=== PATIENT | female | born 1970 | race Caucasian/White ===

== ENCOUNTER 2022-03-08 08:00 | Outpatient (CLI) | payer BC ==
[2022-03-08 20:07] LABS: GLUCOSE, URINE (UA) NEGATIVE (NEGATIVE); KETONES,URINE (UA) NEGATIVE (NEGATIVE); LEUKOCYTE ESTERASE, URINE NEGATIVE (NEGATIVE); NITRITE,URINE NEGATIVE (NEGATIVE); OCCULT BLOOD,URINE NEGATIVE (NEGATIVE); PROTEIN,URINE NEGATIVE (NEGATIVE); UROBILINOGEN,URINE 0.2 (NORMAL) E.U./dL (NORMAL)
[2022-03-08 20:10] LABS: BILIRUBIN,URINE SMALL (NEGATIVE); CLARITY,URINE CLEAR (CLEAR); ICTOTEST,URINE POSITIVE
[2022-03-08 20:24] LABS: BACTERIA,URINE None Seen /HPF (None Seen); RBC,URINE 0-5 /HPF (0-5); SQUAMOUS EPITHELIAL CELL,UR RARE Squamous (<= Few); WBC,URINE 0-3 /HPF (0-5)
== END 2022-03-08 23:59 | disposition home or self-care (01) ==
LOC: LAB 08:00
PROVIDERS: ATTEND Emergency Medicine
DX: R17 Unspecified jaundice (principal)
CPT/HCPCS: 81001; 87086

== ENCOUNTER 2022-03-08 18:15 | Outpatient (CLI) | payer BC ==
[2022-03-08 19:15] LABS: BASOPHILS % (AUTO) 0.8 %; EOSINOPHILS % (AUTO) 0.7 %; HCT - HEMATOCRIT 44.4 % (37.0-47.0); HGB - HEMOGLOBIN 15.3 g/dL (12.0-16.0); LYMPHOCYTES % (AUTO) 44.5 %; MEAN CORPUSCULAR HEMOGLOBIN 31.4 pg (27.0-31.0); MEAN CORPUSCULAR HGB CONC 34.5 g/dL (32.0-36.0); MEAN CORPUSCULAR VOLUME 91.2 fL (81.0-99.0); MEAN PLATELET VOLUME 11.5 fL (7.9-10.8); MONOCYTES % (AUTO) 12.6 %; NEUTROPHILS % (AUTO) 40.9 %; PLT - PLATELET COUNT 175 10^3/uL (130-450); RED BLOOD COUNT 4.87 10^6/uL (4.20-5.40); RED CELL DISTRIBUTION WIDTH 12.3 % (12.0-15.0)
[2022-03-08 19:18] LABS: GLUCOSE, URINE (UA) NEGATIVE (NEGATIVE); KETONES,URINE (UA) NEGATIVE (NEGATIVE); LEUKOCYTE ESTERASE, URINE NEGATIVE (NEGATIVE); NITRITE,URINE NEGATIVE (NEGATIVE); OCCULT BLOOD,URINE NEGATIVE (NEGATIVE); PH,URINE 6.5 PH (5.0-7.5); PROTEIN,URINE NEGATIVE (NEGATIVE); UROBILINOGEN,URINE 0.2 (NORMAL) E.U./dL (NORMAL)
[2022-03-08 19:19] LABS: CLARITY,URINE CLEAR (CLEAR)
[2022-03-08 19:19] LABS: ABNORMAL LYMPHS % (MANUAL) 0 %; BAND NEUTROPHILS % (MANUAL) 0 %; INR 1.2 (0.8-1.2)
[2022-03-08 19:24] LABS: BILIRUBIN,URINE MODERATE (NEGATIVE); ICTOTEST,URINE POSITIVE
[2022-03-08 19:45] LABS: RBC,URINE None Seen /HPF (0-5); SQUAMOUS EPITHELIAL CELL,UR RARE Squamous (<= Few); WBC,URINE 0-3 /HPF (0-5)
[2022-03-08 19:46] LABS: BACTERIA,URINE None Seen /HPF (None Seen)
[2022-03-08 20:00] LABS: ALBUMIN 3.5 g/dL (3.2-5.5); BILIRUBIN,TOTAL 9.4 mg/dL (0.2-1.0); CALCIUM 8.9 mg/dL (8.5-10.3); CREATININE 0.6 mg/dL (0.4-1.0); POTASSIUM 3.8 mmol/L (3.5-5.0); TOTAL PROTEIN 7.1 g/dL (6.7-8.2)
[2022-03-08 21:32] LABS: EOSINOPHILS # (MANUAL) 0.1 10^3/uL (0-0.7); LYMPHOCYTES # (MANUAL) 2.8 10^3/uL (1.5-3.5); LYMPHOCYTES % (MANUAL) 7 %; MONOCYTES # (MANUAL) 0.7 10^3/uL (0.0-1.0); NEUTROPHILS # (MANUAL) 2.3 10^3/uL (1.5-6.6); PLATELET ESTIMATE, MANUAL NORMAL (130-450,000) (NORMAL); PLATELET MORPHOLOGY NORMAL APPEARANCE (NORMAL); RBC MORPHOLOGY (MULTIPLE) NORMAL APPEARANCE (NORMAL); REACTIVE LYMPHS % (MANUAL) 40 %
[2022-03-08 21:33] LABS: DIFFERENTIAL COMMENT MANUAL DIFFERENTIAL
[2022-03-10 09:08] LABS: HBsAG SCREEN Negative (Negative); HEPATITIS B SURFACE AB QUAL Non Reactive (.)
[2022-03-11 07:08] LABS: HCV AB <0.1 s/co ratio (0.0-0.9)
== END 2022-03-08 18:16 | disposition home or self-care (01) ==
LOC: LAB 18:15
PROVIDERS: ATTEND Emergency Medicine
DX: R17 Unspecified jaundice (principal)
CPT/HCPCS: 36415; 80053; 81001; 83690; 85025; 85610; 86706; 86709; 86803; 87086; 87340